=== PATIENT | female | born 1950 | race Caucasian/White ===

== ENCOUNTER 2025-01-16 11:27 | Day surgery (SDC) | payer OTHER, MEDICARE, BC ==
[~2025-01-16] VITALS: Ht 160 cm; Wt 52.5 kg
[2025-01-16] MEDS ORDERED: CeFAZolin Sodium 2,000 MG VIAL ONE (12:29)
[2025-01-16] MEDS ORDERED: LOSARTAN POTASS25 M2 PO (12:41)
[2025-01-16] MEDS ORDERED: ROSUVASTATIN CAL5 MG PO (12:42)
[2025-01-16] MEDS ORDERED: Inderal40 MG PO (12:44)
[2025-01-16] MEDS ORDERED: PANTOPRAZOLE SO40 M2 PO (12:44)
[2025-01-16] MEDS ORDERED: TRAM50 PO (12:44)
[2025-01-16] MEDS ORDERED: OXYCODONE-ACET1 EAC2 PO (12:45)
[2025-01-16] MEDS ORDERED: TRAZ50 PO (12:45)
[2025-01-16] MEDS ORDERED: Dexamethasone Sod Phos 10 MG/ML 1ML VIAL ONE (13:25)
[2025-01-16] MEDS ORDERED: Midazolam HCl 1MG / ML 2ML Vial ONE (13:25)
[2025-01-16] MEDS ORDERED: FentaNYL Citrate 50 MCG/ML 2 ML Injection ONE (13:25)
[2025-01-16] MEDS ORDERED: Ondansetron HCl 2 MG / ML 2ML Vial ONE (13:25)
[2025-01-16] MEDS ORDERED: Bupivacaine 0.5% HCl 5 MG/ML 30MLVIAL ONE (13:29)
--- NOTE | 2025-01-16 15:14 | NUR ---
01/16/25 [facility] Lillie Mix PT TO PACU, MILDLY CONFUSED BUT AWAKE. EKG SHOWS S/A, ANESTH AWARE. OPERATIVE HAND FINGERS WARM, NUMB S/P BLOCK
[2025-01-16] MEDS ORDERED: HYDROcodone 5-APAP 325 TAB ONE (15:44)
--- NOTE | 2025-01-16 15:47 | NUR ---
01/16/25 [id number] Maria Del RosarioLillie SISTER TO BEDSIDE. PT C/O PRESSURE. ECCHYMOSIS FROM FALL NOTED TO ELBOW, MILD SWELLING IN FINGERS, ABLE TO WIGGLE FINGERS WEAKLY. ADMIN 1 NORCO, TOLERATING PO
== END 2025-01-16 16:45 | disposition home or self-care (01) ==
LOC: ORSCSDS 11:27
PROVIDERS: Orthopaedic Surgery
PROC: 0PSJ04Z Reposition Left Radius with Internal Fixation Device, Open Approach (ICD-10-PCS; principal; 2025-01-16 14:15)
DX: S52.502A Unspecified fracture of the lower end of left radius, initial encounter for closed fracture (principal); S52.612A Displaced fracture of left ulna styloid process, initial encounter for closed fracture; W01.0XXA Fall on same level from slipping, tripping and stumbling without subsequent striking against object, initial encounter; I10 Essential (primary) hypertension; E78.00 Pure hypercholesterolemia, unspecified; Z86.73 Personal history of transient ischemic attack (TIA), and cerebral infarction without residual deficits; Z79.899 Other long term (current) drug therapy; Z79.82 Long term (current) use of aspirin; K21.9 Gastro-esophageal reflux disease without esophagitis; Z01.810 Encounter for preprocedural cardiovascular examination; R00.0 Tachycardia, unspecified; R94.31 Abnormal electrocardiogram [ECG] [EKG]; Z01.812 Encounter for preprocedural laboratory examination
CPT/HCPCS: 36415; 80048; 93005; 93010; A9270; C1713; J0690; J1100; J2250; J2405; J2704; J3010